=== PATIENT | male | born 2000 | race Asian ===

== ENCOUNTER 2020-09-03 17:23 | Observation (INO) | payer OTHER, SELFPAY ==
[2020-09-03] VITALS (9 sets, daily range): BP systolic 133–161; BP diastolic 68–95; PULSE 91–121; RESP 16–28; TEMP 36.7–37.7; O2SAT 94–100; BMI 35.7
--- NOTE | 2020-09-03 | PATH_ITS ---
[facility] Accession Number: [id number] . 01 Material submitted: . appendix - APPENDIX . 01 Clinical history: . ABD PAIN . 02 Diagnosis: Appendix, Appendectomy: Acute appendicitis and serositis. MRV 09/09/2020 1113 Local . 02 Electronically signed: . Jannette Colmenares MD, Pathologist NPI- [id number] . 01 Gross description: . The specimen is received in formalin, labeled appendix and consists of an 8.0 cm in length x 1.0 cm in diameter vermiform appendix with attached lundy-yellow lobulated mesoappendix measuring 9.0 x 3.0 x 2.5 cm. The serosa is lundy-pink and smooth with purulent exudate near the tip. Sectioning reveals a lundy mucosa with a lumen measuring up to 0.7 cm, containing hemorrhagic fecal material. Spud Sorter sections are submitted, to include the margin (blue) and bisected tip in cassettes A1-A2. ([id number]) /[facility] 09/05/2020 1708 Local . 02 Pathologist provided ICD-10: K35.80 . 02 CPT . 447262 Performed at: 01 [facility] [address], [place], [place] [id number] MD Jose Camarena MD Phone: [phone] Performed at: 02 [facility] [address] [place], [place] [id number] MD Chasidy Nuñez MD Phone: [phone]
[2020-09-03 18:10] LABS: COVID19 -Nasal RAPID Negative (Negative)
--- NOTE | 2020-09-03 18:24 | ED_ITS ---
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 over the course of the morning progressing to right lower quadrant pain. He was seen at 9:00 a.m. this morning on the [employer] CT scan and blood work were ordered. CT scan reveals acute appendicitis. His last meal was at 10:30 a.m. this morning. He has no other complaints or symptoms. His abdomen is tender with direct palpation in the right lower quadrant otherwise he is quite comfortable at this point he has had no diarrhea or vomiting. No fevers, cough, chest pain, palpitations, skin rashes. Related Data Home Medications Medication Instructions Recorded Confirmed No Known Home Medications 09/03/20 09/03/20 Allergies Allergy/AdvReac Type Severity Reaction Status Date / Time No Known Drug Allergies Allergy Verified 09/03/20 17:47 Review of Systems Review of Systems ROS Unobtainable: All systems reviewed & are unremarkable except as noted in HPI and below Patient History Medical History Appendicitis Social History household members: none Smoking Status: Never smoker alcohol intake: current Smoking Status: Never smoker alcohol intake frequency: 0-2 drinks per day Substance Use Type: does not use Exam Narrative Exam Narrative: General: Healthy appearing, in no acute distress. Able to give a complete and coherent history. Well-nourished well-developed HEENT: Moist mucous membranes, normal sclera with reactive pupils, Neck: No JVD, supple Respiratory: Lungs are clear to auscultation, no wheezing no rales no rhonchi. Full and symmetrical air movement Cardiac: Regular rate and rhythm no murmurs no bruits Abdomen: Soft, moderate tenderness in the right lower quadrant with mild rebo und, no guarding, good bowel tones, no flank pain Skin: Warm and dry, no rashes Neurologic: Grossly neurologically intact with no obvious asymmetries or abnormalities Extremities: No trauma, well perfused Psych: Cooperative, appropriate insight and affect Initial Vital Signs Initial Vital Signs: Vital Signs Temperature 98.9 F 09/03/20 17:41 Pulse Rate 93 H 09/03/20 17:41 Respiratory Rate 16 09/03/20 17:41 Blood Pressure 161/92 H 09/03/20 17:41 Pulse Oximetry 99 09/03/20 17:41 Course Orders Ordered: ED Orders 09/03/20 17:48 COVID19 Stat 09/03/20 18:36 Complete Blood Count AUTO DIFF Stat Comprehensive Metabolic Panel Stat Lipase Stat Lactated Ringer's (Lactated Ringers) 1,000 mls @ 120 mls/hr IV CONT MARY BETH Last Admin: 09/03/20 21:50 Dose: 120 mls/hr Documented by: JOVANY Morphine Sulfate (Morphine 4 Mg/Ml Inj) 4 mg IV Q4HR PRN PRN Reason: Pain, Severe (7-10) Ondansetron HCl (Ondansetron 4 Mg/2 Ml Inj) 4 mg IV Q4HR PRN PRN Reason: Nausea And Vomiting Oxycodone HCl (Oxycodone Ir 5 Mg Tablet) 5 mg PO Q4HR PRN PRN Reason: Pain, Moderate (4-6) Discontinued Medications Acetaminophen (Acetaminophen 325 Mg Tablet) 975 mg PO PACUNOW PRN PRN Reason: Pain, Mild (1-3) Bupivacaine HCl/Epinephrine Bitart (Bupivacaine 0.5% W/ Epi (Pf) 30 Ml Vial) 30 ml INJ NOW ONE Stop: 09/03/20 20:08 Last Admin: 09/03/20 20:07 Dose: 30 ml Documented by: VANESSA Fentanyl (Fentanyl 100 Mcg/2 Ml Inj) 0 mcg IV Q5MIN PRN PRN Reason: Pain, Severe (7-10) Hydromorphone HCl (Hydromorphone 2 Mg Inj) 0 mg IV Q5MIN PRN PRN Reason: Pain, Mild (1-3) Piperacillin Sod/Tazobactam (Sod 4.5 gm/ Sodium Chloride) 100 mls @ 200 mls/hr IV NOW ONE Stop: 09/03/20 18:56 Last Infusion: 09/03/20 19:41 Dose: 0 mls/hr Documented by: Admin: 09/03/20 19:16 Dose: 200 mls/hr Documented by: RICO Sodium Chloride (Normal Saline 0.9%) 1,000 mls @ 1,000 mls/hr IV BOLUS ONE Stop: 09/03/20 19:26 Last Admin: 09/03/20 18:50 Dose: 1,000 mls/hr Documented by: BRENT Lactated Ringer's (Lactated Ringers) 1,000 mls @ 42 mls/hr IV CONT MARY BETH Last Infusion: 09/03/20 20:44 Dose: 0 mls/hr Documented by: Admin: 09/03/20 19:16 Dose: 42 mls/hr Documented by: RICO Meperidine HCl (Meperidine 50 Mg/Ml Inj) 12.5 mg IV PACUNOW PRN PRN Reason: Mild pain or shivering Ondansetron HCl (Ondansetron 4 Mg/2 Ml Inj) 4 mg IV NOW PRN PRN Reason: Nausea And Vomiting Oxycodone HCl (Oxycodone Ir 5 Mg Tablet) 5 mg PO PACUNOW PRN PRN Reason: Mild or moderate pain Scopolamine (Scopolamine 1 Patch) 1 patch TOP NOW ONE Stop: 09/03/20 18:53 Last Admin: 09/03/20 19:18 Dose: 1 patch Documented by: RICO Vital Signs Vital signs: Vital Signs - 8 hr 09/03/20 17:41 Temperature 98.9 F Pulse Rate 93 H Respiratory Rate 16 Blood Pressure 161/92 H Pulse Oximetry 99 MDM - Abdominal Pain Medical Records Attestation: I reviewed the patient's medical records. Lab Data Result diagrams: 09/03/20 18:36 09/03/20 18:36 Labs: Lab Results 09/03/20 09/03/20 09/03/20 Range/Units 17:48 18:36 18:36 WBC 13.7 H (4.5-11.0) X10^3/uL RBC 5.39 (4.5-5.9) X10^6/uL Hgb 15.7 (13.5-17.5) g/dL Hct 46.1 (41-53) % MCV 85.5 (80-100) fL MCH 29.2 (26-34) PG MCHC 34.2 (30-36) % RDW 13.2 (11.6-14.8) % Plt Count 163 (150-400) X10^3/uL Neut % (Auto) 71.8 (50-75) % Lymph % (Auto) 20.6 L (25-40) % Montague % (Auto) 5.7 (3-14) % Eos % (Auto) 0.8 L (2-4) % Baso % (Auto) 1.1 (0-2) % Neut # (Auto) 9800 H (1453-1673) /uL Lymph # (Auto) 2800 (7148-1414) /uL Montague # (Auto) 800 (0-900) /uL Eos # (Auto) 100 (0-450) /uL Baso # (Auto) 100 (0-100) /uL Sodium 135 L (137-145) mmol/L Potassium 4.1 (3.4-5.1) mmol/L Chloride 100 (98-107) mmol/L Carbon Dioxide 29 (22-32) mmol/L BUN 15 (9-20) mg/dL Creatinine 0.99 (0.66-1.25) mg/dL Estimated GFR > 60.0 (>60) mL/min BUN/Creatinine Ratio 15.2 (6-22) Glucose 100 (70-100) mg/dL Calcium 9.9 (8.4-10.2) mg/dL Total Bilirubin 1.0 (0.2-1.3) mg/dL AST 28 (17-59) IU/L ALT 22 (<50) IU/L Alkaline Phosphatase 87 (38-126) U/L Total Protein 9.1 H (6.3-8.2) g/dL Albumin 5.0 (3.5-5.0) g/dL Globulin 4.1 (1.7-4.1) g/dL Albumin/Globulin Ratio 1.2 (1.0-2.8) Lipase 76 (23-300) U/L SARS-CoV-2 (PCR) Negative (Negative) Point of care testing: Urine Dip Bedside Urine Glucose Negative Bedside Urine Bilirubin - Negative Bedside Urine Ketone - Negative Urine Specific Constantine 1.010 Bedside Urine Occult Blood - Negative Bedside Urine pH 6 Bedside Urine Protein - Negative Bedside Urine Urobilinogen - Negative Bedside Urine Nitrite - Negative Bedside Urine Leukocytes - Negative Esterase Imaging Data CT scan - abdomen/pelvis: Radiologist's Impression: CT scan done at the [facility] is reviewed written report indicates acute appendicitis. MDM Narrative Medical decision making narrative: 20-year-old gentleman with acute appendicitis. COVID negative. Last meal at 10:[address] Dr[address] Blanca huston, general surgeon is involved. Will begin Zosyn and IV fluids. He declines any pain medication and nausea medication at this time. He will be admitted to the General surgery service with anticipation of appendectomy this evening. Discharge Plan Departure Patient Disposition: Admitted as Observation Clinical Impression: Appendicitis Qualifiers: Appendicitis type: acute appendicitis Acute appendicitis type: unspecified acute appendicitis type Qualified Code(s): K35.80 - Unspecified acute appendicitis Admit Date/Time: 09/03/20 18:41 Admit Provider: Bree Barfield
--- NOTE | 2020-09-03 18:39 | P.HP_ITS ---
History of Present Illness History of Present Illness Date Patient Seen: 09/03/20 Time Patient Seen: 18:39 Chief complaint: abd pain Narrative: This is a 20-year-old man with obesity (BMI 35.8), who comes in with c/o periumbilical pain starting at 1:00 a.m. progressing to right lower quadrant pain. He was seen at 9:00 a.m. on the [employer] [place] [facility], and CT scan and blood work were ordered. CT scan revealed acute appendicitis and he was referred to ER for further management. His last meal was at 10:30 a.m. this morning. He denies nausea, vomiting, subjective fevers. He denies any significant medical problems, home medications, or family history. He drank a glass of water about 90 minutes ago. ROS: Denies diarrhea or vomiting. No fevers, cough, chest pain, palpitations, skin rashes. PE: GENERAL: Alert, comfortable. Appears younger than stated age. Answers questions promptly and appropriately. Vital signs noted. HENT: Normocephalic, atraumatic. Hearing intact. EYES: Conjunctiva pink, sclera white, no periorbital swelling. CARDIOVASCULAR: Regular rate. No pedal edema. RESPIRATORY: Non-tachypneic, breathing comfortably on room air. GASTROINTESTINAL: Abdomen soft and non-distended; rounded and obese; mild TTP in RLQ; negative Rovsing sign GENITALURINARY: No flank tenderness. MUSCULOSKELETAL: Equal tone and mass bilaterally. SKIN: Warm, dry, soft, appropriate color for ethnicity. No other lesions, rashes, or wounds. NEURO: Alert and Oriented X 3. No gross sensory deficits, or cognitive issues. PSYCH: Appropriate affect and mood. Patient History Medical History Appendicitis Family & Social History Safety & Behavioral: Feels Safe in Current Yes Environment Been Physically Hurt or No Threatened By a Person Tobacco & Substance use: Smoking Status Never smoker alcohol intake frequency 0-2 drinks per day Substance Use Type does not use Meds Home Medications and Allergies Allergies Allergy/AdvReac Type Severity Reaction Status Date / Time No Known Drug Allergies Allergy Verified 09/03/20 17:47 Exam Vital Signs (past 8 hours): - 09/03/20 17:41 Temperature 98.9 F Pulse Rate 93 H Respiratory Rate 16 Blood Pressure 161/92 H Pulse Oximetry 99 Oxygen Delivery Method Room Air Objective Imaging CT scan - abdomen: My impression: Inflamed, thickened appendix without apparent perforation or abscess Radiologist's impression: Official read consistent with non-perforated appendicitis Labs Result Diagrams: 09/03/20 18:36 09/03/20 18:36 Labs: Laboratory Results - last 24 hr 09/03/20 17:48 SARS-CoV-2 (PCR) Negative Assessment & Plan Assessment and plan (1) Appendicitis: Problem details: Appendectomy 09/03/2020 Qualifiers: Acute appendicitis type: unspecified acute appendicitis type Append icitis type: acute appendicitis Qualified Code(s): K35.80 - Unspecified acute appendicitis Status: Acute (2) Obesity (BMI 35.0-39.9 without comorbidity): Status: Acute Assessment & Plan narrative: 25 minutes were spent with the patient discussing his symptoms, CT scan findings, and the risks and benefits of surgery. 13 minutes were spent reviewing the patient's CT read, and reviewing the CT images. 9 minutes were spent discussing his case with the ER doctor, OR staff, and bedside nurse. This is a otherwise healthy 20-year-old young man with acute appendicitis. Risks and benefits of laparoscopic possible open appendectomy were discussed with the patient including risk of bleeding, infection, damage to nearby structures, need for additional procedures, bowel obstruction, hernia, abscess, stump leak. Alternatives were discussed including treating with antibiotics, with a 3/10 risk of recurrent appendicitis in 2 years. Patient desires to proceed with surgery. Total time: 47 minutes Plan: Proceed with surgery laparoscopic possible open appendectomy COVID-19 COVID-19 status: Negative Result date/Date tested (Pos, Neg/Pending): 09/03/20 Time Spent With Patient Time with patient: Greater than 35 minutes (47)
[2020-09-03 18:44] LABS: Add Manual Diff / Slide Review NO; Basophils Absolute Auto 100 /uL (0-100); Basophils Percent Auto 1.1 % (0-2); Eosinophils Absolute Auto 100 /uL (0-450); Eosinophils Percent Auto 0.8 % (2-4); Hematocrit 46.1 % (41-53); Hemoglobin 15.7 g/dL (13.5-17.5); Lymphocytes Absolute Auto 2800 /uL (1100-4500); Lymphocytes Percent Auto 20.6 % (25-40); Mean Corpuscular HGB Conc 34.2 % (30-36); Mean Corpuscular Hemoglobin 29.2 PG (26-34); Mean Corpuscular Volume 85.5 fL (80-100); Monocytes Absolute Auto 800 /uL (0-900); Monocytes Percent Auto 5.7 % (3-14); Neutrophils Absolute Auto 9800 /uL (1500-7000); Neutrophils Percent Auto 71.8 % (50-75); Platelet Count 163 X10^3/uL (150-400); Red Blood Cell Count 5.39 X10^6/uL (4.5-5.9); Red Cell Distribution Width 13.2 % (11.6-14.8); White Blood Cell Count 13.7 X10^3/uL (4.5-11.0)
[2020-09-03] MEDS: SODIUM CHLORIDE 0.9% 1,000 ML 1000 ML IV (18:50)
[2020-09-03 18:57] LABS: Alanine Aminotransferase 22 IU/L (<50); Albumin Globulin Ratio 1.2 (1.0-2.8); Alkaline Phosphatase 87 U/L (38-126); Aspartate Aminotransferase 28 IU/L (17-59); BUN Creatinine Ratio 15.2 (6-22); Blood Urea Nitrogen 15 mg/dL (9-20); Calcium 9.9 mg/dL (8.4-10.2); Carbon Dioxide 29 mmol/L (22-32); Chloride 100 mmol/L (98-107); Estimated Glomerular Filt Rate > 60.0 mL/min (>60); Globulin 4.1 g/dL (1.7-4.1); Glucose 100 mg/dL (70-100); HEMOLYSIS 38 (0-50); Lipase 76 U/L (23-300); Potassium 4.1 mmol/L (3.4-5.1); Sodium 135 mmol/L (137-145); Total Protein 9.1 g/dL (6.3-8.2)
[2020-09-03] MEDS: LACTATED RINGERS 1,000 ML 42 ML IV (19:16)
[2020-09-03] MEDS: PIPERACILLIN/TAZO 4.5 GM in SODIUM CHLORIDE 0.9% 100 ML 200 ML IV (19:16)
[2020-09-03] MEDS: SCOPOLAMINE 1 PATCH TOP (19:18)
--- NOTE | 2020-09-03 19:50 | SUR.OPER ---
Supine on padded OR bed, head on pillow, arm padded and tucked at side, legs uncrossed, safety belt at thigh, tape over blanket over lower legs .
[2020-09-03] MEDS: BUPIVACAINE 0.5% W/ EPI (PF) 30 ML VIAL INJ (20:07)
--- NOTE | 2020-09-03 20:31 | P.OP_ITS ---
Operative Date/Time/Diagnoses Date of procedure: 09/03/20 Time of procedure: 20:31 Pre-op diagnosis: Acute appendicitis Post-op diagnosis: same Procedure & Clinicians Procedure: Laparoscopic appendectomy Same procedure as scheduled: Yes Indications: Acute appendicitis Surgeon: Bree Barfield Click Yes if Unassisted: Yes Anesthesia Type: General Operative Notes Findings: Thickened dilated appendix, consistent with acute appendicitis. Not perforated, no phlegmon. Specimen(s): other (Appendix) Estimated Blood Loss (mL): 2 Procedure in detail: The patient was brought into the operating room and placed supine on the OR table. Sequential compression devices were placed on both legs and turned on. 3.375 gm of Zosyn was given prior to the start of surgery. General anesthesia was induced the patient was intubated. Berrios catheter was placed sterilely in the bladder. The abdomen was prepped and draped in sterile fashion. Surgical time-out was conducted. Local anesthetic was injected under the skin just superior to the umbilicus and a 5 mm vertical incision was made at this site. The umbilical stalk was grasped with a Rodrigo and elevated. A Veress needle was passed through the fascia into proper position. The position was tested with a saline drop test which was appropriate for intra-abdominal Veress needle placement. The abdomen was then insufflated in the usual fashion. Once insufflated to 15 mm Hg the Veress needle was removed and a 5 mm optical trocar was placed under direct vision using a 5 mm 30 degree scope. Once the camera was inside the abdomen I took a look around. There was no injury from port placement. Two additional ports were placed in a similar fashion in the suprapubic position and left lower quadrant. The umbilical port was upsized to a 12 mm port. I took a look at the cecum and right lower quadrant, and the appendix was seen diving down into the pelvis. It was thickened, firm, and adherent to the surrounding structures. There is no evidence of perforation or abscess. I grasped the tip of the appendix and elevated it. The mesoappendix was then carefully divided using LigaSure. I dissected my way down the appendix to its junction with the cecum. At its base, the appendix was soft and pliable. Once all of the mesoappendix and surrounding adhesions were divided and hemostatic, 2 Endoloops were placed at the base of the appendix, and the appendix was divided with LigaSure leaving the endo-loops in place on the cecum. The appendix was t hen placed into an Endo-Catch bag, and removed through the umbilical port site. It was passed off the table for pathology. I then took another look at the right lower quadrant, to check for any ongoing bleeding. There was no evidence of ongoing bleeding. The endo-loops were in good position, and the cecum and mesoappendix were hemostatic. I then used the laparoscopic suture passer and closed the umbilical port site with 0 Vicryl suture through the fascia. Local anesthetic was used in this site and the other 2 port sites for a total of 30 mL of 0.5% Marcaine with epi for the entire case. At this point the insufflation was removed from the abdomen and the port sites were closed with, 3-0 Vicryl in the subcutaneous layers, and 4 Monocryl in the skin. Each port site was sealed with Dermabond. Local anesthetic was given at each of the port sites and in the fascia. This concluded the procedure. At this point the needle, sponge, and instrument counts were correct x2. The patient was awakened from anesthesia and extubated. Berrios catheter was removed without incident. The patient was transferred to the postanesthesia care unit in stable condition. Complications: none Post-operative Condition: stable Disposition: PACU
[2020-09-03] MEDS: LACTATED RINGERS 1,000 ML 120 ML IV (21:50)
--- NOTE | 2020-09-03 22:44 | PC.NURSE ---
Evening Shift Note- Patient arrived to room via bed from PACU at 2054. Patient alert and oriented and able to make needs known to staff. Admit questions done, medications reviewed, physical assessment done, and skin check completed. # lap sites noted to abdomin. Lap sites OTC w. steri strips, all intact at this time. No complaints of pain or discomfort at this time. No complaints of N/V at this time. Oriented patient to bed and bed controls, room, bathroom, lights, phone, menu, and call otoole/TV remote. safety measures in place. Patient agrees to call for assistance. Will continue to monitor.
[2020-09-04 00:50] VITALS: BP 101/78; PULSE 113; RESP 16; TEMP 37; O2SAT 98
--- NOTE | 2020-09-04 00:54 | PC.NURSE ---
2333: patient is alert and oriented. Breath sounds diminished but CTA with RA sat of 97%. Instructed on CDB along with splinting of incision and patient verbalizes understanding. Denies nausea. BT present but patient denies flatus as yet. Has voided and denies frequency or urgency but states he did have some burning with urination. Able to move himself in bed. Up to bathroom with SBA. Lap sites to abdomen are dermabonded and without redness or drainage. Denies pain. Wearing bilateral calf SCD's. Fall risk score is low.
[2020-09-04 05:30] VITALS: BP 130/68; PULSE 80; RESP 16; TEMP 36.8; O2SAT 99
[2020-09-04 05:50] LABS: Add Manual Diff / Slide Review NO; Basophils Absolute Auto 0 /uL (0-100); Basophils Percent Auto 0.5 % (0-2); Eosinophils Absolute Auto 0 /uL (0-450); Hematocrit 44.3 % (41-53); Hemoglobin 14.9 g/dL (13.5-17.5); Lymphocytes Absolute Auto 800 /uL (1100-4500); Lymphocytes Percent Auto 8.8 % (25-40); Mean Corpuscular HGB Conc 33.6 % (30-36); Mean Corpuscular Hemoglobin 29.1 PG (26-34); Mean Corpuscular Volume 86.6 fL (80-100); Monocytes Absolute Auto 200 /uL (0-900); Neutrophils Absolute Auto 8300 /uL (1500-7000); Neutrophils Percent Auto 88.7 % (50-75); Platelet Count 164 X10^3/uL (150-400); Red Blood Cell Count 5.11 X10^6/uL (4.5-5.9); Red Cell Distribution Width 13.3 % (11.6-14.8); White Blood Cell Count 9.3 X10^3/uL (4.5-11.0)
[2020-09-04] MEDS: LACTATED RINGERS 1,000 ML 120 ML IV (06:27)
[2020-09-04 08:25] VITALS: BP 137/60; PULSE 105; RESP 19; TEMP 36.9; O2SAT 98
--- NOTE | 2020-09-04 10:20 | CM.DANOTE ---
DCP/Assessment: Reviewed chart. Patient is a 20yr old male admitted to [facility] with abdominal pain. PCP is OLEGARIO Estrada. Primary payor is 1)[employer]. Met with patient explained CM/SW role. Patient alert and oriented at time of visit. Patient reports that he is currently active . Patient discharging today. Patient underwent lap appy for appendicitis. Patient completely I with all ADL's and does not anticipate any needs. P: Home/base today. LORENA Reddy Discharge Planning/Care Management CM Discharge Assessment Start: 09/04/20 10:17 Freq: Status: Active Protocol: Document 09/04/20 10:18 KJS (Rec: 09/04/20 10:19 KJS [id number]) Discharge Planning Assessment Assigned Engineering Technologist LORENA Reddy Contact Information Brennon Dia (friend) # [phone] Advance Directives? No History Provided By Patient,Medical Record Has Patient been admitted in last 30 No days? Household Members none Type of transporation used prior to Drives own vehicle admit Independent with ADL's Yes Is patient alert and oriented? Yes Caregiver for Another No Barriers to Discharge No Discharge Plan Home Transportation Arrangement Friend or Command to provide transportation home. Referrals Initiated None needed Whiteboard Updated in Patient Room with Yes name and ext. # of Engineering Technologist Review Status In Process Next Review Type Continued Stay Review
--- NOTE | 2020-09-04 11:17 | PC.NURSE ---
Patient ready for discharge to home, tolerated breakfast, ambulating and voiding. No BM yet, but educated on stool softners and hydration. Patient declines use of pain medications. No new prescriptions. Lap sites remain EMT PARAMEDIC without redness or drainage. Discharge instructions reviewed with patient and he states understanding. Patient agrees he will call surgeon's office to schedule follow up appointment. Patient requested a more specific note (than what was written in his dc instructions) for work as he plans to return on Wednesday, surgeon's office notified to send.
--- NOTE | 2020-09-10 15:48 | PC.NURSE ---
Late Entry; NS infusion initiated 09/03 at 18:50, complete at 19:51.
== END 2020-09-04 10:45 | disposition home or self-care (01) ==
LOC: ED 18:38 → AC 18:51
PROVIDERS: Emergency Medicine; Admitting Provider Surgery; Emergency Provider Emergency Medicine; Referring Provider Emergency Medicine; Visit Provider Surgery
PROC: 0DTJ4ZZ Resection of Appendix, Percutaneous Endoscopic Approach (ICD-10-PCS; CPT 44970; principal; 2020-09-03 18:45)
DX: K35.80 Unspecified acute appendicitis (principal); E66.9 Obesity, unspecified; Z68.35 Body mass index [BMI] 35.0-35.9, adult; Z20.822 Contact with and (suspected) exposure to COVID-19
CPT/HCPCS: 44970; 36415; 80053; 81003; 83690; 85025; 87635; 96361; 96365; 99218; 99282; 99283; C9803; G0378; J0330; J1100; J1885; J2250; J2405; J2543; J2704; J3010